=== PATIENT | male | born 1950 | race Caucasian/White ===

== ENCOUNTER 2019-01-11 22:37 | Inpatient (IN) | payer MEDICARE ==
[~2019-01-11] VITALS: Ht 162.6 cm; Wt 93.0 kg
[2019-01-11 22:45] VITALS: BP 77/48
[2019-01-11] MEDS ORDERED: GLIPIZIDE10 MG PO (22:56)
[2019-01-11] MEDS ORDERED: IBUPROFEN600 MG PO (22:57)
[2019-01-11] MEDS ORDERED: VITAMIN B-121000 MCG PO (22:58)
[2019-01-11] MEDS ORDERED: OMEPRAZOLE20 M1 PO (22:59)
[2019-01-11 23:00] VITALS: BP 98/47
[2019-01-11] MEDS ORDERED: NOVOLOG100 UNIT/1 SC (23:01)
[2019-01-11] MEDS ORDERED: LIPITOR20 MG PO (23:02)
[2019-01-11] MEDS ORDERED: ZOLOFT100 MG PO (23:03)
[2019-01-11] MEDS ORDERED: COZAAR100 MG PO (23:03)
[2019-01-11] MEDS ORDERED: ASPIRIN EC81 M1 PO (23:04)
[2019-01-11] MEDS ORDERED: TRAZODONE HCL150 MG PO (23:04)
[2019-01-11] MEDS ORDERED: NEURONTIN 300300 MG PO (23:05)
[2019-01-11] MEDS ORDERED: VITAMIN D31000 UNIT PO (23:05)
--- NOTE | 2019-01-11 23:07 | NUR ---
FSBS 319
[2019-01-11 23:08] LABS: BASOPHILS 0.2 % (0-2); EOSINOPHILS 0.2 % (0-7); HEMATOCRIT 43.6 % (42.0-54.0); HEMOGLOBIN 15.8 g/dL (13.5-17.5); IMMATURE GRANULOCYTES 0.5 % (0-5); LYMPHOCYTES 12.5 % (15-50); MCH 31.5 pg (26.0-34.0); MCHC 36.2 g/dL (31.0-37.0); MCV 86.9 fL (80.0-100.0); MEAN PLATELET VOLUME 11.6 fL (7.4-10.4); MONOCYTES 9.7 % (2-11); NEUTROPHILS 76.9 % (40-80); PLATELET COUNT 255 10x3/uL (130-400); RBC 5.02 10x6/uL (4.20-6.10); RDW 12.6 % (11.5-14.5); WBC 10.9 10x3/uL (4.8-10.8)
[2019-01-11 23:20] LABS: APTT 25.9 SECONDS (22.8-39.4); INR 1.06 (0.85-1.17); PROTIME 13.3 SECONDS (11.6-15.0)
[2019-01-11 23:25] LABS: ALBUMIN 2.9 g/dL (3.4-5.0); ALKALINE PHOSPHATASE 74 U/L (46-116); ALT (SGPT) 36 U/L (10-68); BILIRUBIN - TOTAL 0.46 mg/dL (0.2-1.3); CALC OSMOLALITY 304 mosm/kg (275-300); CALCIUM 8.5 mg/dL (8.5-10.1); CARBON DIOXIDE 24.7 mmol/L (21.0-32.0); CHLORIDE - SERUM 95 mmol/L (98-107); CREATININE - SERUM 4.6 mg/dL (0.6-1.3); GLUCOSE 290 mg/dL (74-106); POTASSIUM - SERUM 3.4 mmol/L (3.5-5.1); PROTEIN - SERUM 6.7 g/dL (6.4-8.2); SODIUM 132 mmol/L (136-145); UREA NITROGEN 94 mg/dL (7-18); eGFR NON AFRICAN AMERICAN 14 mL/min (90-120)
[2019-01-11 23:30] VITALS: BP 108/67
[2019-01-11 23:38] LABS: CKMB 1.8 U/L (0.0-3.6); CREATINE KINASE 374 UL (21-232); TROPONIN-I < 0.017 ng/mL (0.000-0.060)
[2019-01-12] VITALS (18 sets, daily range): BP systolic 90–139; BP diastolic 54–79; Ht 162.6 cm; Wt 93.0 kg
--- NOTE | 2019-01-12 00:18 | NUR ---
LEVOPHED INITIATED AT 3MCG/MIN
[2019-01-12 00:33] LABS: APPEARANCE CLEAR (CLEAR); BILIRUBIN NEGATIVE (NEGATIVE); COLOR YELLOW (YELLOW); GLUCOSE 1000 mg/dL (NEGATIVE); KETONE NEGATIVE (NEGATIVE); NITRITE NEGATIVE (NEGATIVE); PROTEIN TRACE mg/dL (NEGATIVE); UROBILINOGEN NORMAL (NORMAL)
[2019-01-12 00:35] LABS: BACTERIA MODERATE /hpf (NONE SEEN); EPITHELIAL CELLS 0-5 /hpf (0-5); HYALINE CAST 0-5 /lpf (NONE SEEN); MUCUS <1+ /lpf (NONE SEEN); RED CELLS - URINE 0-5 /hpf (0-5); WHITE CELLS - URINE 0-5 /hpf (0-5)
--- NOTE | 2019-01-12 01:20 | NUR ---
RECEIVED PATIENT TO ROOM 2304 VIA STRETCHER FROM ED ACOMPANIED BY [facility] ED RN. TRANSFERED TO ICU BED. AWAKE ALERT AND ORIENTED X 4. SPEECH CLEAR. TALKATIVE. MONITORS CONNECTED TO PATIENT WITH ALARMS SETT. VSS. REC'D ON LEVOPHED GTT. ASSESSMENT COMPLETED PER FLOW SHEET WITH NO ACUTE DISTRESS OBSERVED. ORIENTED TO ROOM/CALL LIGHT. CALL LIGHT PLACED WITHIN REACH AND ABLE TO UTILIZE TO MAKE NEEDS KNOWN.
--- NOTE | 2019-01-12 03:00 | NUR ---
AWAKE AND ALERT.VSS OFF PRESSOR
[2019-01-12 04:21] LABS: BASOPHILS 0.2 % (0-2); EOSINOPHILS 0.2 % (0-7); HEMATOCRIT 41.9 % (42.0-54.0); HEMOGLOBIN 15.5 g/dL (13.5-17.5); IMMATURE GRANULOCYTES 0.4 % (0-5); LYMPHOCYTES 13.6 % (15-50); MCH 32.5 pg (26.0-34.0); MCV 87.8 fL (80.0-100.0); MEAN PLATELET VOLUME 11.5 fL (7.4-10.4); MONOCYTES 10.5 % (2-11); NEUTROPHILS 75.1 % (40-80); PLATELET COUNT 209 10x3/uL (130-400); RBC 4.77 10x6/uL (4.20-6.10); RDW 12.4 % (11.5-14.5); WBC 9.7 10x3/uL (4.8-10.8)
[2019-01-12 04:48] LABS: ALBUMIN 2.6 g/dL (3.4-5.0); ALKALINE PHOSPHATASE 104 U/L (46-116); ALT (SGPT) 36 U/L (10-68); BILIRUBIN - TOTAL 0.38 mg/dL (0.2-1.3); CALCIUM 8.4 mg/dL (8.5-10.1); CARBON DIOXIDE 27.5 mmol/L (21.0-32.0); CHLORIDE - SERUM 98 mmol/L (98-107); CKMB 2.7 U/L (0.0-3.6); CREATININE - SERUM 3.8 mg/dL (0.6-1.3); POTASSIUM - SERUM 3.6 mmol/L (3.5-5.1); PROTEIN - SERUM 6.1 g/dL (6.4-8.2); SODIUM 137 mmol/L (136-145); TROPONIN-I < 0.017 ng/mL (0.000-0.060); UREA NITROGEN 82 mg/dL (7-18); eGFR NON AFRICAN AMERICAN 17 mL/min (90-120)
[2019-01-12 04:56] LABS: CALC OSMOLALITY 312 mosm/kg (275-300); CREATINE KINASE 485 UL (21-232); GLUCOSE 349 mg/dL (74-106)
--- NOTE | 2019-01-12 05:00 | NUR ---
AWAKE AND ALERT. VSS
--- NOTE | 2019-01-12 07:30 | NUR ---
REPORT RECEIVED. PT RESTING QUIETLY. LOW BP (87/60 WITH MAP OF 73). WILL MONITOR. LEVOPHED PRN IF NEEDED. PT HAS A RIGHT FOREARM IV WITH LR INFUSING AT 125ML/HR. PT IS ALERT AND ORIENTED. HEAD TO TOE ASSESSMENT COMPLETE. NO NEEDS AT THIS TIME.
--- NOTE | 2019-01-12 09:00 | NUR ---
PT PLACED NPO PER RENAL GALO BROCK. PT TO HAVE A CT OF HIS ABDOMEN. COMPLAINED OF EPIGASTRIC/DIAPHRAGM PAIN WHEN SWALLOWED BITE OF BREAKFAST THIS AM. EXPLAINED TO PT THAT HE WOULD HAVE A CT. VERBALIZED UNDERSTANDING. NO OTHER COMPLAINTS AT THIS TIME. BP HAS INCREASED WITH PT AWAKE AND MOVING AROUND.
[2019-01-12 10:36] LABS: CHOL - HDL RATIO 3.8 ratio (2.3-4.9); CHOLESTEROL, TOTAL 111 mg/dL (0-200); CREATINE KINASE 526 UL (21-232); HDL CHOLESTEROL 29 mg/dL (32-96); LDL CHOLESTEROL 50 mg/dL (0-100); LDL-HDL RATIO 1.7 ratio (1.5-3.5); MAGNESIUM - SERUM 2.4 mg/dL (1.8-2.4); PHOSPHOROUS 4.3 mg/dL (2.5-4.9); TRIGLYCERIDE 160 mg/dL (30-200); TROPONIN-I < 0.017 ng/mL (0.000-0.060)
[2019-01-12 10:37] LABS: COMPLEMENT C4 28.2 mg/dL (17.4-52.2)
--- NOTE | 2019-01-12 11:09 | NUR ---
PT SITTING UP IN BED WATCHING TV. AWARE THAT WE NEED A RANDOM URINE ON HIM. SPECIMEN CUP GIVEN TO PT. VSS. NO COMPLAINTS OR NEEDS AT THIS TIME. WILL CONTINUE TO MONITOR.
--- NOTE | 2019-01-12 11:46 | NUR ---
PT TAKEN TO CT.
--- NOTE | 2019-01-12 12:40 | NUR ---
REPORT CALLED TO [facility]SON ON [facility]
--- NOTE | 2019-01-12 13:34 | NUR ---
RECIEVED PT TO UNIT AT THIS TIME. PT HAS A R FA PIV INFUSING LR @ 125. RR EVEN AND UNLABORED. NO DISTRESS NOTED. PT CURRENTLY EATING LUNCH. BED LOCKED AND IN LOWEST POSITION, CALL LIGHT WITHIN REACH. WILL CTM
--- NOTE | 2019-01-12 16:01 | MORECARE ---
CASE MANAGEMENT DISCHARGE SUMMARY PATIENT: ALVIN WOODSON UNIT: [id number] ADM DATE: 01/12/19 AGE: 68 : 51 SEX: M ROOM/BED: D.1201 AUTHOR: SAVANAH NEGRETE PHYSICIAN: REFERRING PHYSICIAN: TRINA ARENAS MD DATE OF SERVICE: 01/12/19 Discharge Plan Patient Name: ALVIN WOODSON [facility] [facility] 1950 Planned Disposition: Home or Self Care Anticipated Discharge Date: Discharge Date: Expected LOS: Initial Reviewer: [email or web address] Initial Review Date: 01/12/2019 Generated: 01/12/19 5:00 pm DCPIA - Discharge Planning Initial Assessment Updated by [email or web address]: Gissel Renee on 01/12/19 3:59 pm * Is the patient Alert and Oriented? Yes * How many steps to enter\exit or inside your home? RAMP * [facility] [place] [facility] [place] * Preadmission Environment Home Alone * ADLs Independent * Equipment Rolling Walker * List name and contact numbers for known caregivers / representatives who currently or will assist patient after discharge: GENIA WEBBER * Verbal permission to speak to the caregivers and representatives has been obtained from the patient. N/A * Community resources currently utilized [facility] * Additional services required to return to the preadmission environment? No * Can the patient safely return to the preadmission environment? Yes * Has this patient been hospitalized within the prior 30 days at any hospital? No Patient Name: ALVIN WOODSON Page [id number] at 1601 All edits/amendments must be made on the electronic document DICTATION DATE: 01/12/191599 HAT TRIMMER: HITESH 01/12/19 1600 RPT#: [id number] DC DATE: STATUS: ADM IN [facility] [address] [place] [address] END OF REPORT
--- NOTE | 2019-01-12 16:12 | MORECARE ---
CASE MANAGEMENT DISCHARGE SUMMARY PATIENT: ALVIN WOODSON UNIT: [id number] ADM DATE: 01/12/19 AGE: 68 : 51 SEX: M ROOM/BED: D.1201 AUTHOR: PENELOPEDOC PHYSICIAN: REFERRING PHYSICIAN: TRINA ARENAS MD DATE OF SERVICE: 01/12/19 Discharge Plan Patient Name: ALVIN WOODSON Facility: [facility]:[place] : 1950 Planned Disposition: Home or Self Care Anticipated Discharge Date: Discharge Date: Expected LOS: Initial Reviewer: [email or web address] Initial Review Date: 01/12/2019 Generated: 01/12/19 5:11 pm Comments DCP- Discharge Planning Updated by [id number]: Gissel Renee on 01/12/19 3:[address] Patient Name: ALVIN WOODSON Admission Status: ER Accout number: [id number] Admission Date: 01-12-2019 : 1950 Admission Diagnosis: Attending: TRINA ARENAS Current LOS: 1 Anticipated DC Date: Planned Disposition: Home or Self Care Primary Insurance: MEDICARE PART A ONLY Discharge Planning Comments: CM met with patient to complete initial dc planning assessment. CM educated patient on the CM role and verbal consent given by patient to complete assessment. Patient lives in [place], but is visiting a friend in [place] and plans to move to [place] in the future. At discharge patient plans to return to his friends house and she will be the one to drive him back to [place] and feels this is a safe discharge. CM discussed availability of home health, rehab services, and medical equipment. He does uses a walker at times. Patient denied known discharge needs at this time. CM will continue to follow and will assist as needed with dc plans/needs. Box Blank Machine Feeder: Gissel Renee DCPIA - Discharge Planning Initial Assessment Updated by [email or web address]: Gissel Renee on 01/12/19 3:59 pm * Is the patient Alert and Oriented? Yes * How many steps to enter\exit or inside your home? RAMP * [facility] [place] [facility] [place] * Preadmission Environment Home Alone * ADLs Independent * Equipment Rolling Walker * List name and contact numbers for known caregivers / representatives who currently or will assist patient after discharge: GENIA WEBBER * Verbal permission to speak to the caregivers and representatives has been obtained from the patient. N/A * Community resources currently utilized [facility] * Additional services required to return to the preadmission environment? No * Can the patient safely return to the preadmission environment? Yes * Has this patient been hospitalized within the prior 30 days at any hospital? No Last DP export: 01/12/19 3:01 p Patient Name: ALVIN WOODSON Page [id number] at 1612 All edits/amendments must be made on the electronic document DICTATION DATE: 01/12/191610 AUTOMOBILE MECHANIC MOTOR: HITESH 01/12/191610 RPT#: [id number] DC DATE: STATUS: ADM IN [facility] [address] [place] [address] END OF REPORT
--- NOTE | 2019-01-12 19:28 | NUR ---
PATIENT RESTING IN BED WITH GUEST AT BEDSIDE. BROUGHT PATIENT CHICKEN BROTH PER HIS REQUEST. PATIENT DENIES OTHER NEEDS AT THIS TIME. BED IN LOWEST POSITION AND CALL LIGHT WITHIN REACH. ENCOURAGED THE PATIENT TO CALL IF HE HAS NEEDS. WILL CONTINUE TO MONITOR.
[2019-01-13 04:40] VITALS: BP 142/85
[2019-01-13 07:17] VITALS: BP 132/73
--- NOTE | 2019-01-13 07:20 | NUR ---
PT RESTING IN BED, SHIFT ASSESSMENT PERFORMED. VSS AND WNL. WILL CONT TO FOLLOW POC
[2019-01-13 07:38] LABS: BASOPHILS 0.3 % (0-2); EOSINOPHILS 1.3 % (0-7); HEMATOCRIT 37.5 % (42.0-54.0); HEMOGLOBIN 13.2 g/dL (13.5-17.5); IMMATURE GRANULOCYTES 0.1 % (0-5); LYMPHOCYTES 12.8 % (15-50); MCH 30.5 pg (26.0-34.0); MCHC 35.2 g/dL (31.0-37.0); MCV 86.6 fL (80.0-100.0); MEAN PLATELET VOLUME 11.4 fL (7.4-10.4); MONOCYTES 9.6 % (2-11); NEUTROPHILS 75.9 % (40-80); PLATELET COUNT 203 10x3/uL (130-400); RBC 4.33 10x6/uL (4.20-6.10); RDW 12.1 % (11.5-14.5)
[2019-01-13 07:41] LABS: WBC 7.2 10x3/uL (4.8-10.8)
[2019-01-13 07:59] LABS: ALBUMIN 2.3 g/dL (3.4-5.0); BILIRUBIN - TOTAL 0.55 mg/dL (0.2-1.3); CARBON DIOXIDE 27.9 mmol/L (21.0-32.0); POTASSIUM - SERUM 3.9 mmol/L (3.5-5.1); PROTEIN - SERUM 5.1 g/dL (6.4-8.2)
[2019-01-13 08:01] LABS: CREATININE - SERUM 1.5 mg/dL (0.6-1.3); MAGNESIUM - SERUM 1.7 mg/dL (1.8-2.4); PHOSPHOROUS 2.4 mg/dL (2.5-4.9)
--- NOTE | 2019-01-13 09:00 | NUR ---
PT LEFT FOR NUCLEAR MED
--- NOTE | 2019-01-13 09:30 | NUR ---
PT RETURNED TO FLOOR FROM [facility]
[2019-01-13 10:11] LABS: ANA REFLEX - DBL STRANDED DNA <1 IU/mL (0-9); ANA REFLEX - DIRECT Negative (Negative)
--- NOTE | 2019-01-13 12:09 | MORECARE ---
CASE MANAGEMENT DISCHARGE SUMMARY PATIENT: ALVIN WOODSON UNIT: [id number] ADM DATE: 01/12/19 AGE: 68 : 52 SEX: M ROOM/BED: D.1201 AUTHOR: PENELOPEDOC PHYSICIAN: REFERRING PHYSICIAN: TRINA ARENAS MD DATE OF SERVICE: 01/13/19 Discharge Plan Patient Name: ALVIN WOODSON Facility: [facility]:[place] : 1950 Planned Disposition: Home or Self Care Anticipated Discharge Date: Discharge Date: 01/13/2019 Expected LOS: Initial Reviewer: [email or web address] Initial Review Date: 01/12/2019 Generated: 01/13/19 1:09 pm DCP- Discharge Planning Updated by [email or web address]: Gissel Renee on 01/12/19 3:[address] Patient Name: ALVIN WOODSON Admission Status: ER Accout number: [id number] Admission Date: 01-12-2019 : 1950 Admission Diagnosis: Attending: TRINA ARENAS Current LOS: 1 Anticipated DC Date: Planned Disposition: Home or Self Care Primary Insurance: MEDICARE PART A ONLY Discharge Planning Comments: CM met with patient to complete initial dc planning assessment. CM educated patient on the CM role and verbal consent given by patient to complete assessment. Patient lives in [place], but is visiting a friend in [place] and plans to move to [place] in the future. At discharge patient plans to return to his friends house and she will be the one to drive him back to [place] and feels this is a safe discharge. CM discussed availability of home health, rehab services, and medical equipment. He does uses a walker at times. Patient denied known discharge needs at this time. CM will continue to follow and will assist as needed with dc plans/needs. Supervisor Contact And Service Clerks: Gissel Renee DCPIA - Discharge Planning Initial Assessment Updated by [email or web address]: Gissel Renee on 01/12/19 3:59 pm * Is the patient Alert and Oriented? Yes * How many steps to enter\exit or inside your home? RAMP * [facility] [place] [facility] [place] * Preadmission Environment Home Alone * ADLs Independent * Equipment Rolling Walker * List name and contact numbers for known caregivers / representatives who currently or will assist patient after discharge: GENIA WEBBER * Verbal permission to speak to the caregivers and representatives has been obtained from the patient. N/A * [facility] resources currently utilized [facility] * Additional services required to return to the preadmission environment? No * Can the patient safely return to the preadmission environment? Yes * Has this patient been hospitalized within the prior 30 days at any hospital? No Last DP export: 01/12/19 3:12 p Patient Name: ALVIN WOODSON Page [id number] at 1209 All edits/amendments must be made on the electronic document DICTATION DATE: 01/13/19 120 ARRANGING FUNERAL DIRECTOR: HITESH 01/13/19 1209 RPT#: [id number] DC DATE:01/13/19 STATUS: DIS IN [facility] [address] [place] [address] END OF REPORT
--- NOTE | 2019-01-13 13:45 | NUR ---
PT LEFT ROOM WITHOUT ALERTING ANYONE. PAGED PT OVERHEAD TO RETURN TO ROOM. AFTER 30 MINS ALERTED MANAGER APPLE AND SECURITY. ALERTED KAYLA METCALF. PT STILL HAS AN IV IN HIS ARM.
[2019-01-13 14:09] LABS: SPE - A/G RATIO 0.9 (0.7-1.7); SPE - ALPHA-1 GLOBULIN 0.2 g/dL (0.0-0.4); SPE - ALPHA-2 GLOBULIN 1.2 g/dL (0.4-1.0); SPE - BETA GLOBULIN 0.9 g/dL (0.7-1.3); SPE - GAMMA GLOBULIN 0.9 g/dL (0.4-1.8); SPE - M-SPIKE Not Observed g/dL (Not Observed); SPE - TOTAL PROTEIN 6.2 g/dL (6.0-8.5)
[2019-01-14 11:10] LABS: UPE RAND - ALBUMIN 32.9 % (()); UPE RAND - ALPHA 2 GLOBULIN 10.1 % (()); UPE RAND - BETA GLOBULIN 23.5 % (()); UPE RAND - GAMMA GLOBULIN 26.5 % (())
== END 2019-01-13 11:54 | disposition left against medical advice (07) | DRG 871 ==
LOC: D.ER 22:37 → D.ICU 01-12 00:38 → D.M3 01-12 13:26
PROVIDERS: Family Medicine; Internal Medicine Nephrology; ADMIT Internal Medicine Nephrology; ATTEND Internal Medicine Nephrology
DX: A41.9 Sepsis, unspecified organism (principal); J96.01 Acute respiratory failure with hypoxia; G93.41 Metabolic encephalopathy; R57.1 Hypovolemic shock; R65.21 Severe sepsis with septic shock; N39.0 Urinary tract infection, site not specified; N17.9 Acute kidney failure, unspecified; E87.1 Hypo-osmolality and hyponatremia; E87.2 Acidosis; I95.9 Hypotension, unspecified; E87.6 Hypokalemia; I10 Essential (primary) hypertension; E78.5 Hyperlipidemia, unspecified; E11.43 Type 2 diabetes mellitus with diabetic autonomic (poly)neuropathy; K31.84 Gastroparesis; K29.70 Gastritis, unspecified, without bleeding